=== PATIENT | female | born 1995 | race Two or more races ===

== ENCOUNTER 2017-03-07 19:03 | Emergency (ER) | payer MEDICAID, OTHER ==
--- NOTE | 2017-03-07 19:05 | ED Physician Chart ---
Chief Complaint/HPI - Patient Information Date Seen:: 03/07/17 Time Seen:: 19:05 Chief Complaint:: body aches History of Present Illness:: 21-year-old female with acute, worsening, constant, severe, generalized body aches that started this morning. Has associated sore throat and fever. Denies chest pain, palpitations, nausea, vomiting, diarrhea, dysuria, illicit substance abuse. Allergies:: Allergies Allergy/AdvReac Type Severity Reaction Status Date / Time MDX No Known Allergies - Nka Allergy Verified 03/19/15 15:37 [No Known Allergies - Nka] Historian:: Patient Review:: Nurse's Note Reviewed Review of Systems - Review of Systems Other: Complete system review otherwise unremarkable except as noted in history of present illness. Past Medical History - Past Medical History Past Medical History: No significant medical hx Family History: None Social History: Non Smoker, No Alcohol, No Drug Use, Other Surgical History: None Psychiatricy History: None Medication: None Family Medical History - Family Member Mother History Unknown: Yes Physical Exam - Physical Examination Other:: INITIAL VITAL SIGNS: Reviewed by me GENERAL: Alert and interactive. No acute distress HEAD: Head is normocephalic and atraumatic EYES: EOMI. PERRL. No scleral icterus. No conjunctival injection ENT: Tonsils are +2 edematous with exudate. NECK: Supple. Bilateral cervical adenopathy greater on the right than left. Full range of motion RESPIRATORY: No tachypnea. Clear breath sounds bilaterally. No wheezing, rales, or rhonchi CV: Tachycardic. No murmurs, rubs, or gallops ABDOMEN: Soft, non-distended, non-tender. No guarding. No rebound. No masses. EXTREMITIES: No deformity. No cyanosis. No edema. SKIN: Warm and dry. No obvious rashes. NEUROLOGIC: Alert and oriented. Face is symmetric. Speech is normal. Moves all extremities equally. Motor and sensory distally intact. Labs/Radiology/EKG Results - Lab Results Results: Lab Results 03/07/17 Range/Units 19:21 WBC 13.6 H (4.8-10.8) Th/cmm RBC 4.51 (3.80-5.10) Mil/cmm Hgb 13.2 (11.7-15.5) gm/dL Hct 39.5 (35.0-45.0) % MCV 87.6 (81-100) fl MCH 29.3 (27.0-31.0) pg MCHC Differential 33.4 (28.0-36.0) pg RDW 12.2 (11.5-20.0) % Plt Count 248 (150-400) Th/cmm MPV 8.6 fl Neutrophils % 86.2 H (40.0-80.0) % Lymphocytes % 6.8 L (20.0-50.0) % Monocytes % 5.9 (2.0-10.0) % Eosinophils % 0.4 (0.0-5.0) % Basophils % 0.7 (0.0-2.0) % - EKG Interpretations Comments:: 12-lead EKG Interpretation by Henna Wei MD: Sinus tachycardia with ventricular rate of 111 beats per minute Normal axis Normal intervals No acute ST or T wave changes. No obvious STEMI ED Septic Shock - . Is Septic Shock (SBP<90, OR Lactate>4 mmol\L) present?: No Reassessment (Disposition) - Reassessment Reassessment:: 21-year-old female presents with acute fever, body aches, sore throat. Has strep throat on exam. Received IV fluids, IV Toradol, acetaminophen, IV Decadron. Provided definitive treatment for strep throat with intramuscular Bicillin 1.2 million units. Gave return to ER precautions. Patient says she understands and agrees with the plan. Reassessment Condition:: Improved - Diagnosis Diagnosis:: Acute myalgias, fever, and throat pain due to acute tonsillitis, unspecified bacteria - Aftercare/Follow up Instructions Aftercare/Follow-Up Instructions:: Counseled pt regarding lab results/diagnosis & need follow up, Refer to Discharge Instructions Medication Prescribed:: Ibuprofen - Patient Disposition Discharge/Transfer:: Home Time:: 20:09 Condition at Disposition:: Improved ED Discharge Plan - Patient Disposition Admit/Discharge/Transfer: PT DISCHARGED HOME Condition at Disposition: Improved Instructions: Tonsillitis, [id number] Additional Instructions: FILL YOUR PRESCRIPTION AND TAKE IT DIRECTED. FOLLOW UP WITH YOUR REGULAR DOCTOR IN THE NEXT 2-3 DAYS.
[2017-03-07] MEDS ORDERED: Dexamethasone Sodium Phos 4 mg/mL Vial IVP STA (19:18)
[2017-03-07] MEDS ORDERED: Sodium Chloride 0.9% 1,000 ML IV ONE (19:18)
[2017-03-07 19:34] LABS: % BASOPHILS 0.7 % (0.0-2.0); % EOSINOPHILS 0.4 % (0.0-5.0); % LYMPHOCYTES 6.8 % (20.0-50.0); % MONOCYTES 5.9 % (2.0-10.0); % NEUTROPHILS 86.2 % (40.0-80.0); HEMATOCRIT 39.5 % (35.0-45.0); HEMOGLOBIN 13.2 gm/dL (11.7-15.5); MEAN CELL VOLUME 87.6 fl (81-100); MEAN CORPUSCULAR HEMOGLOBIN 29.3 pg (27.0-31.0); MEAN CORPUSCULAR HGB CONC 33.4 pg (28.0-36.0); MEAN PLATELET VOLUME 8.6 fl; NEUTROPHILE ABSOLUTE 11.7 Th/cmm (1.8-8.0); PLATELET COUNT 248 Th/cmm (150-400); RED BLOOD COUNT 4.51 Mil/cmm (3.80-5.10); RED CELL DISTRIBUTION WIDTH 12.2 % (11.5-20.0)
[2017-03-07 19:51] LABS: WHITE BLOOD COUNT 13.6 Th/cmm (4.8-10.8)
[2017-03-07 19:58] LABS: INR 0.94 (0.5-1.4); PROTHROMBIN TIME (TEST) 9.8 SECONDS (9.5-11.5)
[2017-03-07] MEDS ORDERED: Dexamethasone Sodium Phos 10 mg/mL PF Vial ONE (19:58)
[2017-03-07] MEDS ORDERED: Acetaminophen 500 MG TAB ONE (19:59)
[2017-03-07 20:00] LABS: ALB/GLOB RATIO 1.2 (1.0-1.8); ALKALINE PHOSPHATASE 56 U/L (34-104); ANION GAP 11.1 (7.0-16.0); BILIRUBIN,TOTAL 0.5 mg/dL (0.3-1.0); BUN - UREA NITROGEN 10 mg/dL (7-25); BUN/CREATININE RATIO 16.7; CALCIUM SERUM 9.4 mg/dL (8.6-10.3); CARBON DIOXIDE 22.2 mEq/L (21.0-31.0); CHLORIDE 102 mEq/L (98-107); CREATININE - SERUM 0.6 mg/dL (0.6-1.2); GLUCOSE 102 mg/dL (70-105); POTASSIUM SERUM 3.3 mEq/L (3.5-5.1); SGOT 15 U/L (13-39); SGPT/ALT 14 U/L (7-52); SODIUM SERUM 132 mEq/L (136-145)
[2017-03-07 20:33] LABS: URINE BILIRUBIN NEGATIVE (NEGATIVE); URINE BLOOD TRACE (NEGATIVE); URINE COLOR YELLOW; URINE GLUCOSE (UA) NEGATIVE (NEGATIVE); URINE KETONE 15 mg/dL (NEGATIVE); URINE PH 7.5; URINE PROTEIN NEGATIVE (NEGATIVE)
[2017-03-07 20:34] LABS: URINE BACTERIA NONE SEEN /hpf (NONE SEEN); URINE EPITHELIAL CELLS NONE SEEN /lpf (FEW); URINE RBC 0-2 /hpf (0-5); URINE UROBILINOGEN 0.2 E.U./dL (0.2 - 1.0); URINE WBC 0-2 /hpf (0-5)
[2017-03-07] MEDS ORDERED: Prochlorperazine 5 mg/mL 2mL Vial IVP STA (20:44)
[2017-03-07] MEDS ORDERED: Prochlorperazine 5 mg/mL 2mL Vial ONE (20:49)
== END 2017-03-07 21:00 | disposition home or self-care (01) ==
LOC: ER 19:03
DX: J03.90 Acute tonsillitis, unspecified (principal); M79.1 Myalgia
CPT/HCPCS: 99285; 96372; 96374; 96375; 93005; 36415; 83605; 85025; 85610; 85730; 81001; 82550; 80053; 87040 ×3; J1885; J0561; J0780; J1200; J7030; Z7610